=== PATIENT | female | born 1955 | race Caucasian/White ===

== ENCOUNTER 2024-02-03 06:15 | Day surgery (SDC) | payer MEDICARE, OTHER ==
[~2024-02-03 06:15] MED LIST: Sodium Chloride 0.9% 10 ML Syringe FLUSH PRN
[2024-02-03] MEDS ORDERED: Lidocaine 2% 100 MG/5 ML Syringe IVPUSH ONE (06:16)
[2024-02-03] MEDS ORDERED: Propofol 200 MG/20 ML SDV IV ONE (06:16)
[2024-02-03] MEDS: Lactated Ringers 1,000 ML IV SCH (07:14)
[2024-02-03] MEDS: Simethicone Drops 40 MG/0.6 ML 30 ML Bottle ONE (07:30)
== END 2024-02-03 09:00 | disposition home or self-care (01) ==
LOC: FB.SDS 06:15
PROVIDERS: ATTEND Surgery
DX: Z12.11 Encounter for screening for malignant neoplasm of colon (principal); K57.30 Diverticulosis of large intestine without perforation or abscess without bleeding; F41.9 Anxiety disorder, unspecified; F32.A Depression, unspecified; E78.5 Hyperlipidemia, unspecified; Z87.891 Personal history of nicotine dependence; Z86.010 Personal history of colon polyps; Z79.899 Other long term (current) drug therapy; Z88.0 Allergy status to penicillin; Z88.5 Allergy status to narcotic agent
CPT/HCPCS: 45378; A9270; J2704; J7120; 00812